=== PATIENT | male | born 1945 | race Caucasian/White ===

== ENCOUNTER 2017-12-24 07:54 | Inpatient (IN) | payer OTHER ==
[~2017-12-24 07:54] MED LIST: HYDROmorphONE 2 MG/ML SYG; LIDOCAINE 2% (SDV) 5 ML INJ
[2017-12-24] MEDS: CEFAZOLIN 2 GM/50 ML (PMX) 50 ML (FOR WT < 120 KG) IVPB (08:30)
[2017-12-24] MEDS: LACTATED RINGER'S 1,000 ML IV (08:30)
[2017-12-24] MEDS: SOD CHLORIDE 0.9% 1,000 ML IV (08:30)
[2017-12-24] MEDS ORDERED: FENTAnyl 50 MCG/ML VIAL ×2 (10:23→12:54)
[2017-12-24] MEDS ORDERED: MIDAZOLAM 1 MG/ML 2 ML INJ (10:24)
[2017-12-24] MEDS ORDERED: PROPOFOL 20 ML (10:24)
[2017-12-24] MEDS ORDERED: CEFAZOLIN 1 GM INJ ×2 (10:26→10:50)
[2017-12-24] MEDS ORDERED: GELATIN SIZE 100 SPONGE (11:31)
[2017-12-24] MEDS: THROMBIN 5000 UNIT VIAL (13:01)
[2017-12-24] MEDS: BUPIVACAINE 0.25%/EPI (SDV) 30 ML INJ (13:01)
[2017-12-24] MEDS ORDERED: LABETALOL HCL 20MG INJ (13:01)
[2017-12-24] MEDS: POLYMYXIN/BACITRACIN 1L IRRIG IRR (13:01)
[2017-12-24] MEDS ORDERED: METOCLOPRAMIDE 10 MG INJ (14:27)
[2017-12-24] MEDS ORDERED: ACETAMINOPHEN 1000MG/100ML IV 100 ML (14:30)
[2017-12-24] MEDS: BUPIVACAINE 0.25% (MPF) 30 ML INJ (15:47)
[2017-12-24] MEDS: HYDROmorphONE (0.2 MG/ML) 10ML SYG IV ×2 (16:56→17:17)
[2017-12-24] MEDS: ONDANSETRON 4 MG INJ IV (16:58)
[2017-12-24] MEDS ORDERED: IPRATROPIUM (NEB) 0.5 MG/2.5 ML AMP HHN (17:00)
[2017-12-24] MEDS ORDERED: LABETALOL HCL 20MG INJ IV (17:00)
[2017-12-24] MEDS ORDERED: hydrALAzine 20 MG INJ IV (17:00)
[2017-12-24] MEDS ORDERED: MEPERIDINE 25 MG INJ IV (17:00)
[2017-12-24] MEDS ORDERED: HYDROmorphONE (0.2 MG/ML) 10ML SYG IV (17:00)
[2017-12-24] MEDS ORDERED: DIPHENHYDRAMINE 50 MG INJ IV (17:00)
[2017-12-24] MEDS ORDERED: FENTAnyl 50 MCG/ML VIAL IV ×2 (17:00)
[2017-12-24] MEDS ORDERED: ACETAMINOPHEN 325 MG TAB PO (17:00)
[2017-12-24] MEDS ORDERED: NACL 0.9% 3 ML SYG IV (17:00)
[2017-12-24] MEDS ORDERED: NALOXONE (0.4 MG/ML) INJ IV (17:00)
[2017-12-24] MEDS ORDERED: PROCHLORPERAZINE 10 MG TAB PO (17:00)
[2017-12-24] MEDS ORDERED: ONDANSETRON 4 MG INJ IV (17:00)
[2017-12-24] MEDS ORDERED: HYDROmorphONE 0.2 MG/ML PCA (17:03)
[2017-12-24] MEDS: CEFAZOLIN 1 GM/50 ML (PMX) 50 ML IVPB ×2 (17:20→23:47)
[2017-12-24] MEDS: HYDROmorphONE 0.2 MG/ML PCA IV (17:35)
[2017-12-24] MEDS ORDERED: GLUCOSE GEL 15 GRAM TUBE PO ×2 (18:00)
[2017-12-24] MEDS ORDERED: GLUCOSE GEL 15 GRAM TUBE BUCCAL (18:00)
[2017-12-24] MEDS ORDERED: GLUCAGON 1 MG INJ IM (18:00)
[2017-12-24] MEDS ORDERED: DEXTROSE 50% 50 ML SYRINGE IV ×2 (18:00)
[2017-12-24] MEDS: ATORVASTATIN 10 MG TAB PO (21:42)
[2017-12-24] MEDS: DOXAZOSIN 4 MG TAB PO (21:42)
[2017-12-24] MEDS: SOD CHLORIDE 0.45% 1,000 ML IV (21:42)
[2017-12-25] MEDS: SOD CHLORIDE 0.45% 1,000 ML IV ×3 (02:52→22:24)
[2017-12-25 05:14] LABS: ADD MAN DIFF? NO
[2017-12-25 05:22] LABS: WHITE BLOOD COUNT 9.4 10^3/ul (4.8-10.8)
[2017-12-25 05:22] LABS: BASOPHILS % 0.1 % (0.0-2.0); HEMATOCRIT 32.9 % (42.0-52.0); HEMOGLOBIN 10.9 g/dl (14.0-18.0); LYMPHOCYTES # 0.7 10^3/ul (0.8-2.9); LYMPHOCYTES % 7.8 % (15.0-51.0); MEAN CORPUSCULAR HEMOGLOBIN 30.4 pg (29.0-33.0); MEAN CORPUSCULAR HGB CONC 33.1 g/dl (32.0-37.0); MEAN CORPUSCULAR VOLUME 91.9 fl (82.0-101.0); MEAN PLATELET VOLUME 10.1 fl (7.4-10.4); MONOCYTE # 0.7 10^3/ul (0.3-0.9); MONOCYTES % 7.5 % (0.0-11.0); NEUTROPHIL # 7.9 10^3/ul (1.6-7.5); NEUTROPHILS % 84.3 % (39.0-77.0); PLATELET COUNT 106 10^3/UL (140-415); RED BLOOD COUNT 3.58 10^6/ul (4.70-6.10); RED CELL DISTRIBUTION WIDTH 12.6 % (11.5-14.5)
[2017-12-25] MEDS: CEFAZOLIN 1 GM/50 ML (PMX) 50 ML IVPB ×2 (05:31→12:33)
[2017-12-25 05:50] LABS: ANION GAP 16 (8-16); BLOOD UREA NITROGEN 11 mg/dl (7-20); CALCIUM 8.1 mg/dl (8.4-10.2); CARBON DIOXIDE 24 mmol/L (21-31); CHLORIDE 106 mmol/L (97-110); CREATININE 0.72 mg/dl (0.61-1.24); GLUCOSE 165 mg/dl (70-220); POTASSIUM 4.1 mmol/L (3.5-5.1); SODIUM 142 mmol/L (135-144)
[2017-12-25] MEDS ORDERED: HYDROCODONE/APAP (5/325) TAB GTB ×2 (07:30)
[2017-12-25] MEDS: SOD CHLORIDE 0.9% 1,000 ML IV (08:30)
[2017-12-25] MEDS: LACTATED RINGER'S 1,000 ML IV (08:30)
[2017-12-25] MEDS: metFORMIN 850 MG TAB PO (08:37)
[2017-12-25] MEDS: FINASTERIDE 5 MG TAB PO (08:37)
[2017-12-25] MEDS: LISINOPRIL 5 MG TAB PO (08:37)
[2017-12-25] MEDS: ASPIRIN (EC) 81 MG TAB PO (08:38)
[2017-12-25] MEDS ORDERED: HYDROCODONE/APAP (5/325) TAB PO ×2 (09:30→11:30)
[2017-12-25] MEDS: HYDROCODONE/APAP (5/325) TAB PO ×3 (09:58→19:02)
[2017-12-25] MEDS: DOXAZOSIN 4 MG TAB PO (20:45)
[2017-12-25] MEDS: ATORVASTATIN 10 MG TAB PO (20:45)
[2017-12-26] MEDS: SOD CHLORIDE 0.9% 1,000 ML IV (08:30)
[2017-12-26] MEDS ORDERED: NA PHOSPHATE/BIPHOS 133 ML ENEMA PR (08:30)
[2017-12-26] MEDS: LACTATED RINGER'S 1,000 ML IV (08:30)
[2017-12-26] MEDS: SOD CHLORIDE 0.45% 1,000 ML IV (08:52)
[2017-12-26] MEDS: ASPIRIN (EC) 81 MG TAB PO (09:05)
[2017-12-26] MEDS: metFORMIN 850 MG TAB PO (09:05)
[2017-12-26] MEDS: DOCUSATE SODIUM 100 MG CAP PO (09:05)
[2017-12-26] MEDS: FINASTERIDE 5 MG TAB PO (09:05)
[2017-12-26] MEDS: LISINOPRIL 5 MG TAB PO (09:06)
== END 2017-12-26 16:00 | disposition home or self-care (01) | DRG 517 ==
LOC: REC 07:54 → MS1 18:05
PROVIDERS: Specialist
PROC: 01NB0ZZ Release Lumbar Nerve, Open Approach (ICD-10-PCS; principal; 2017-12-24 10:30)
DX: M48.07 Spinal stenosis, lumbosacral region (principal); M43.17 Spondylolisthesis, lumbosacral region; I10 Essential (primary) hypertension; E11.9 Type 2 diabetes mellitus without complications; E78.5 Hyperlipidemia, unspecified; M51.16 Intervertebral disc disorders with radiculopathy, lumbar region; N40.0 Benign prostatic hyperplasia without lower urinary tract symptoms; Z79.84 Long term (current) use of oral hypoglycemic drugs
CPT/HCPCS: 72100; 80048; 82962; 85025; 86850; 86900; 86901; 87086; 97116; 97162; 97530